=== PATIENT | male | born 1990 ===

== ENCOUNTER 2016-09-08 18:25 | Emergency (ER) | payer OTHER, MEDICAID ==
[~2016-09-08] VITALS: Ht 185.4 cm; Wt 99.8 kg
== END 2016-09-08 20:50 | disposition short-term general hospital (02) ==
LOC: ER 18:25
DX: R51 Headache (principal); M54.2 Cervicalgia; F17.210 Nicotine dependence, cigarettes, uncomplicated; V89.2XXA Person injured in unspecified motor-vehicle accident, traffic, initial encounter; Y92.410 Unspecified street and highway as the place of occurrence of the external cause